=== PATIENT | male | born 1940 | race Caucasian/White ===

== ENCOUNTER → 2017-01-04 | Outpatient (CLI) | payer MEDICARE, OTHER ==
[2017-01-04 15:51] LABS: Blood Urea Nitrogen 13 mg/dL (9-20); Non-African American GFR(MDRD) >60 (>60 ml/min/1.73 sqM)
--- NOTE | 2017-01-05 07:57 | CT ---
EXAMINATION TYPE: CT abdomen pelvis w con DATE OF EXAM: 01/04/2017 COMPARISON: NONE HISTORY: Hematuria x1 1/[address] DLP: 701.5 mGycm, Automated Exposure Control for Dose Reduction was Utilized. CONTRAST: CT scan of the abdomen and pelvis is performed with oral and with IV Contrast, patient injected with 100 mL of Omnipaque 300. FINDINGS: LUNG BASES: Mild linear scarring or atelectasis centrally in left lung base is present . LIVER/GB: No significant abnormality is appreciated. PANCREAS: Mid to distal pancreatic body is prominent with heterogeneous hypodense areas identified. L argest measures 1.6 x 1.0 cm posterior aspect mid to distal body and axial image 18. Small hypodense area is seen distal to this on coronal image 39. Suspect cystic lesions. The main pancreatic duct is felt slightly dilated seen best on coronal image 33 and 34 near this level. Further workup is advised . SPLEEN: No significant abnormality is seen. ADRENALS: No significant abnormality is seen. KIDNEYS: There is symmetric cortical medullary uptake and excretion from both kidneys without evidenc e of hydronephrosis bilaterally. There is eccentric lobulated partially calcified bladder wall mass p osterior left aspect measuring 3.1 x 2.0 cm strongly suspicious for neoplasm given patient history. B ilateral distal ureter jets remain patent on delayed phased images through the bladder.. BOWEL: Oral contrast reaches level of mid transverse colon. There is no suspicious small or large bow el dilatation. There are scattered diverticula throughout the colon with prominent diverticulosis see n in the sigmoid colon. There is no CT evidence for acute diverticulitis. PROSTATE/SEMINAL VESICLES: Bladder is mildly enlarged bulging on bladder base, underlying BPH is susp ected. LYMPH NODES: No greater than 1cm abdominal or pelvic lymph nodes are appreciated. OSSEOUS STRUCTURES: Spine is straightened on sagittal images. There is multilevel disc desiccation an d disc space narrowing most prominent at L2-L3 and L5-S1 levels. There is moderate to advanced joint space loss and spurring in both hip joints. Nonspecific sclerotic focus left femoral head favors small bone infarct. OTHER: There is fairly moderate atherosclerotic change of aorta extending into branch vessels. IMPRESSION: 1. Fungated intraluminal partially calcified hyperdense bladder mass strongly suspicious for transiti onal cell carcinoma given patient's history of gross hematuria. Further investigation with direct vis ualization is advised. 2. Small hypodense areas in the somewhat prominent mid pancreatic body just left of midline near leve l of prominent or mildly dilated duct. Suspect cystic lesions. Differential includes cystic neoplasm versus sidebranch IPMN. Further investigation with multi phase contrast-enhanced MRI/MRCP study is ad vised to better evaluate and characterize.
== END | disposition home or self-care (01) ==
LOC: RADCTMAIN 15:13
PROVIDERS: ATTEND Urology
DX: N32.89 Other specified disorders of bladder (principal); R93.3 Abnormal findings on diagnostic imaging of other parts of digestive tract; R31.0 Gross hematuria
CPT/HCPCS: 82565; 84520; 74177; 36415; Q9967

== ENCOUNTER → 2017-02-12 | Outpatient (CLI) | payer MEDICARE, OTHER ==
[2017-02-12 10:36] LABS: HCT 44.1 % (39.0-53.0); HDW 2.34; HGB 13.7 gm/dL (13.0-17.5); MCH 29.3 pg (25.0-35.0); MCHC 31.1 g/dL (31.0-37.0); MCV 94.2 fL (80.0-100.0); Mean Platelet Volume 7.4; RBC 4.69 m/uL (4.30-5.90); RDW 14.5 % (11.5-15.5); WBC 8.9 k/uL (3.8-10.6)
[2017-02-12 15:12] LABS: Anion Gap 8 mmol/L; Blood Urea Nitrogen 11 mg/dL (9-20); Calcium 9.8 mg/dL (8.4-10.2); Carbon Dioxide 25 mmol/L (22-30); Chloride 104 mmol/L (98-107); Glucose 122 mg/dL (74-99); Non-African American GFR(MDRD) >60 (>60 ml/min/1.73 sqM); Potassium 4.2 mmol/L (3.5-5.1); Sodium 137 mmol/L (137-145)
== END | disposition home or self-care (01) ==
LOC: LABWHC1 09:52
PROVIDERS: ATTEND Urology
DX: Z01.812 Encounter for preprocedural laboratory examination (principal); C67.6 Malignant neoplasm of ureteric orifice; Z79.899 Other long term (current) drug therapy
CPT/HCPCS: 36415; 80048; 85027

== ENCOUNTER 2017-02-18 07:26 | Day surgery (SDC) | payer MEDICARE, OTHER ==
[2017-02-15 14:59] VITALS: BMI 21.5
[~2017-02-18 07:26] MED LIST: DEXAMETHASONE SOD PHOSPHATE 10 MG/ML 1 ML VIAL IV ONE; HYDROmorphone 0.5 MG/0.5 ML SYRINGE IVP PRN; LACTATED RINGERS 1,000 ML IV SCH; LEVOFLOXACIN 500MG-D5W PMX 500 MG in DEXTROSE/WATER 1 100ML.BAG IVPB ONE; MIDAZOLAM 2 MG/2 ML VIAL IV PRN; ONDANSETRON 4 MG/2 ML VIAL IVP ONE
[2017-02-18] MEDS ORDERED: LIDOCAINE 1% 20 ML VIAL (10MG/ML) FOR IV START INTRADERMA ONE (08:20)
[2017-02-18] MEDS ORDERED: LIDOCAINE 1% INJ 10MG/ML (20 ML MDV) ONE (09:38)
[2017-02-18] MEDS ORDERED: PROPOFOL 10 MG/ML 20 ML VIAL IV ONE (09:38)
[2017-02-18] MEDS ORDERED: fentaNYL (PF) 50 MCG/ML 2 ML AMP ONE (09:38)
[2017-02-18] MEDS ORDERED: PHENYLEPHRINE-0.9% NACL SYG 1 MG/10 ML SYRINGE ONE (09:38)
[2017-02-18] MEDS ORDERED: ePHEDrine SULFATE/0.9% NACL/PF 50 MG/5 ML SYRINGE IV ONE (09:38)
[2017-02-18] MEDS ORDERED: MIDAZOLAM 2 MG/2 ML VIAL ONE (09:38)
[2017-02-18] MEDS ORDERED: LACTATED RINGERS 1,000 ML IV ONE (10:32)
[2017-02-18 11:00] VITALS: TEMP 98.2
--- NOTE | 2017-02-18 11:07 | P.OP ---
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 His PSA level has been mildly elevated. He underwent a prostate ultrasound with biopsies in January 2009, showing no evidence of malignancy. His measured prostate volume was 30 cc. He reports mild frequency but was verified to be emptying his bladder. ITA reveals the prostate to be mildly enlarged but smooth. He recently experienced gross hematuria. A CT scan showed a bladder tumor, and he underwent TUR-BT. pathology revealed TaG1 uurothelial carcinoma. At the time of resection , tumor was seen within the intramural portion of the left distal ureter. He will undergo left ureteroscopy with laser ablation of any remaining tumor. Smoking cessation was stressed. The CT scan also showed a pancreatic lesion, for which he will follow up with Dr. Santiago. Operative Findings: No evidence of residual tumor. Left ureteral orifice could not be cannulated. Description of Procedure: The patient was taken to the operating room and placed in the dorsolithotomy position, with legs supported in Popeye stirrups. The external genitalia was prepped and draped sterilely. The 30 lens was used to introduce the 19-Ugandan Stortz cystoscopic sheath through the urethra and into the bladder under direct vision. The prostatic urethra showed evidence of mild lateral lobe enlargement. The bladder was examined in its entirety. The entire bladder was examined. Inflammation with healing was noted on the left posterior lateral bladder wall. The left ureteral orifice was not identified. Therefore, the 24- [place] ACMI resectoscope sheath was introduced into the bladder. In the anticipated area of the left ureter, resection was performed. This exposed what appeared to be the left ureteral orifice. The resectoscope was removed, and the ACMI semirigid ureteroscope was advanced into the bladder. Despite multiple attempts, the left ureteral orifice could not be cannulated. A Glidewire was passed through the ureteroscope, but this could not be successfully replaced. Ultimately, the procedure was terminated. The patient tolerated the procedure well and was taken to the recovery room in stable condition.
--- NOTE | 2017-02-18 11:27 | FL ---
Fluoroscopy HISTORY: Kidney stone 33 seconds fluoroscopy time supplied to the referring clinician. 1 intraoperative C-arm images docum ent the procedure. See dictated report from urology.
[2017-02-18 11:45] VITALS: PULSE 87
[2017-02-18 12:33] VITALS: BP 125/72; RESP 18
== END 2017-02-18 12:33 | disposition home or self-care (01) ==
LOC: OR 07:26
PROVIDERS: ATTEND Urology
DX: C67.6 Malignant neoplasm of ureteric orifice (principal); R39.12 Poor urinary stream; Z80.52 Family history of malignant neoplasm of bladder; I10 Essential (primary) hypertension; E03.9 Hypothyroidism, unspecified; E78.00 Pure hypercholesterolemia, unspecified; J44.9 Chronic obstructive pulmonary disease, unspecified; F17.200 Nicotine dependence, unspecified, uncomplicated; Z88.1 Allergy status to other antibiotic agents; Z79.899 Other long term (current) drug therapy; Z79.82 Long term (current) use of aspirin; Z82.49 Family history of ischemic heart disease and other diseases of the circulatory system; Z71.6 Tobacco abuse counseling
CPT/HCPCS: 52234; 88342; 88307; C1769; J2250; J1100; J2405; J1956; J2001; J3010; J2370; J2704

== ENCOUNTER → 2017-03-01 | Day surgery (SDC) | payer MEDICARE, OTHER ==
[2017-02-23 14:13] VITALS: BMI 21.5
[~2017-03-01] MED LIST changes: -DEXAMETHASONE SOD PHOSPHATE 10 MG/ML 1 ML VIAL IV ONE; -HYDROmorphone 0.5 MG/0.5 ML SYRINGE IVP PRN; -LACTATED RINGERS 1,000 ML IV SCH; -LEVOFLOXACIN 500MG-D5W PMX 500 MG in DEXTROSE/WATER 1 100ML.BAG IVPB ONE; -MIDAZOLAM 2 MG/2 ML VIAL IV PRN; -ONDANSETRON 4 MG/2 ML VIAL IVP ONE; +SODIUM CHLORIDE 0.9% 250 ML IV ONE
[2017-03-01 10:18] VITALS: BP 105/59; PULSE 78; RESP 18; TEMP 97.8
[2017-03-01 10:36] LABS: Basophils # (A) 0.1 k/uL (0-0.2); Basophils % (A) 1 %; CH 29.4; CHCM 32.3; Eosinophils # (A) 0.4 k/uL (0-0.7); Eosinophils % (A) 4 %; HCT 45.2 % (39.0-53.0); HDW 2.33; HGB 14.3 gm/dL (13.0-17.5); Luc # (Auto) 0.12; Luc % (Auto) 1; Lymphocytes # (A) 1.9 k/uL (1.0-4.8); Lymphocytes % (A) 19 %; MCH 28.9 pg (25.0-35.0); MCHC 31.7 g/dL (31.0-37.0); MCV 91.4 fL (80.0-100.0); Mean Platelet Volume 7.8; Monocytes # (A) 0.7 k/uL (0-1.0); Monocytes % (A) 8 %; Neutrophils # (A) 6.6 k/uL (1.3-7.7); Neutrophils % (A) 68 %; RBC 4.94 m/uL (4.30-5.90); WBC 9.8 k/uL (3.8-10.6); WBC (Perox) 9.65
[2017-03-01 10:45] LABS: Anion Gap 11 mmol/L; Blood Urea Nitrogen 11 mg/dL (9-20); Calcium 9.7 mg/dL (8.4-10.2); Carbon Dioxide 24 mmol/L (22-30); Chloride 103 mmol/L (98-107); Glucose 111 mg/dL (74-99); Non-African American GFR(MDRD) >60 (>60 ml/min/1.73 sqM); Potassium 4.3 mmol/L (3.5-5.1); Sodium 138 mmol/L (137-145)
--- NOTE | 2017-03-01 11:48 | US ---
EXAMINATION TYPE: US kidneys/renal and bladder DATE OF EXAM: 03/01/2017 COMPARISON: CT scan 01/04/17. CLINICAL HISTORY: left kidney r/o hydronephrosis. EXAM MEASUREMENTS: Right Kidney: 10.4 x 4.8 x 4.3 cm Left Kidney: 10.2 x 4.4 x 4.5 cm Right Kidney: No hydronephrosis or masses seen Left Kidney: No hydronephrosis or masses seen Bladder: Mildly distended. Wall = 0.6 cm, thickened. Inferior lesion vs wall thickening = 3.9 x 3.5 x 1.4 cm Bilateral Jets not seen IMPRESSION: Abnormal echogenicity within the bladder at the level of the left distal ureter likely related the pa tient's history of malignancy. No hydronephrosis.
== END ==
LOC: CATHCVL 09:37
PROVIDERS: ATTEND Radiology Diagnostic Radiology
DX: C67.9 Malignant neoplasm of bladder, unspecified (principal); D41.4 Neoplasm of uncertain behavior of bladder; Z53.8 Procedure and treatment not carried out for other reasons; R97.20 Elevated prostate specific antigen [PSA]; I10 Essential (primary) hypertension; E03.9 Hypothyroidism, unspecified; F17.200 Nicotine dependence, unspecified, uncomplicated; E78.00 Pure hypercholesterolemia, unspecified; Z79.82 Long term (current) use of aspirin; Z88.0 Allergy status to penicillin; Z79.899 Other long term (current) drug therapy; Z88.1 Allergy status to other antibiotic agents; Z85.828 Personal history of other malignant neoplasm of skin; Z80.52 Family history of malignant neoplasm of bladder; Z82.49 Family history of ischemic heart disease and other diseases of the circulatory system
CPT/HCPCS: 76770; 80048; 85025

== ENCOUNTER → 2017-04-01 | Outpatient (CLI) | payer MEDICARE, OTHER ==
[2017-04-01 12:39] LABS: Basophils % (A) 0 %; CH 28.8; CHCM 32.6; Eosinophils # (A) 0.1 k/uL (0-0.7); Eosinophils % (A) 1 %; HCT 47.1 % (39.0-53.0); HDW 2.34; HGB 15.2 gm/dL (13.0-17.5); Luc # (Auto) 0.13; Luc % (Auto) 1; Lymphocytes # (A) 1.7 k/uL (1.0-4.8); Lymphocytes % (A) 18 %; MCH 28.7 pg (25.0-35.0); MCHC 32.3 g/dL (31.0-37.0); MCV 88.8 fL (80.0-100.0); Mean Platelet Volume 8.5; Monocytes # (A) 0.6 k/uL (0-1.0); Monocytes % (A) 6 %; Neutrophils # (A) 6.9 k/uL (1.3-7.7); Neutrophils % (A) 73 %; RDW 13.8 % (11.5-15.5); WBC 9.6 k/uL (3.8-10.6); WBC (Perox) 10.02
[2017-04-01 12:51] LABS: Anion Gap 10 mmol/L; Blood Urea Nitrogen 13 mg/dL (9-20); Calcium 10.4 mg/dL (8.4-10.2); Carbon Dioxide 24 mmol/L (22-30); Chloride 101 mmol/L (98-107); Glucose 109 mg/dL (74-99); Non-African American GFR(MDRD) >60 (>60 ml/min/1.73 sqM); Sodium 135 mmol/L (137-145)
[2017-04-01 13:05] LABS: Potassium 5.2 mmol/L (3.5-5.1)
== END | disposition home or self-care (01) ==
LOC: LABPAT 11:15
PROVIDERS: ATTEND Urology
DX: Z01.812 Encounter for preprocedural laboratory examination (principal); C67.6 Malignant neoplasm of ureteric orifice; E03.9 Hypothyroidism, unspecified
CPT/HCPCS: 36415; 80048; 85025; 87086

== ENCOUNTER 2017-04-08 07:57 | Day surgery (SDC) | payer MEDICARE, OTHER ==
[2017-03-31 09:27] VITALS: BMI 21.5
[~2017-04-08 07:57] MED LIST changes: +LACTATED RINGERS 1,000 ML IV SCH; +MORPHINE SULFATE 5 MG/ML SYRINGE IV PRN; +Pre Op ABX Message 1 EACH MISC MISCELLANE ONE; -SODIUM CHLORIDE 0.9% 250 ML IV ONE
[2017-04-08] MEDS ORDERED: LIDOCAINE 1% 20 ML VIAL (10MG/ML) FOR IV START INTRADERMA ONE (08:25)
[2017-04-08] MEDS ORDERED: ONDANSETRON 4 MG/2 ML VIAL IVP ONE (08:26)
[2017-04-08] MEDS ORDERED: DEXAMETHASONE SOD PHOSPHATE 10 MG/ML 1 ML VIAL IV ONE (08:26)
[2017-04-08 08:41] LABS: Potassium 4.2 mmol/L (3.5-5.1)
[2017-04-08] MEDS ORDERED: fentaNYL (PF) 50 MCG/ML 2 ML AMP ONE (09:42)
[2017-04-08] MEDS ORDERED: PROPOFOL 10 MG/ML 20 ML VIAL IV ONE (09:42)
[2017-04-08] MEDS ORDERED: ePHEDrine SULFATE/0.9% NACL/PF 50 MG/5 ML SYRINGE IV ONE (09:42)
[2017-04-08] MEDS ORDERED: WATER FOR INJECTION, STERILE 10 ML VIAL IV ONE (09:42)
[2017-04-08] MEDS ORDERED: METHYLENE BLUE 10 MG/ML (10 ML VIAL) ONE (09:42)
[2017-04-08] MEDS ORDERED: SUCCINYLCHOLINE CHLORIDE 100 MG/5 ML SYR IV ONE (09:42)
[2017-04-08] MEDS ORDERED: GLYCOPYRROLATE 0.2 MG/ML 2 ML VIAL ONE (09:42)
[2017-04-08] MEDS ORDERED: LIDOCAINE 1% INJ 10MG/ML (20 ML MDV) ONE (09:42)
[2017-04-08] MEDS ORDERED: NEOSTIGMINE 1 MG/ML 10 ML VIAL ONE (09:42)
[2017-04-08] MEDS ORDERED: MIDAZOLAM 2 MG/2 ML VIAL ONE (09:42)
[2017-04-08] MEDS ORDERED: ROCURONIUM BROMIDE 10 MG/ML 10 ML VIAL IV ONE (09:42)
[2017-04-08] MEDS ORDERED: LACTATED RINGERS 1,000 ML IV ONE (10:15)
[2017-04-08] MEDS ORDERED: IOHEXOL 350 MG/ML 50ML BOTTLE MISCELLANE ONE (11:00)
--- NOTE | 2017-04-08 13:27 | FL ---
Fluoroscopy INDICATION: Pain FINDINGS: Fluoroscopy time: 5 minutes 5 seconds. Images obtained: 1. IMPRESSIONS: 1. Documentation of fluoroscopy.
[2017-04-08 16:30] VITALS: BP 128/64; PULSE 79; RESP 18; TEMP 98.1
--- NOTE | 2017-04-28 06:49 | P.OP ---
Date of Procedure: 04/08/17 Preoperative Diagnosis: Urothelial carcinoma of the bladder and left distal ureter Postoperative Diagnosis: Same Procedure(s) Performed: Cystoscopy, transurethral resection of bladder tumor (small), left ureteroscopy , left retrograde pyelogram Surgeon: Curtis Rivera Estimated Blood Loss (ml): 10 IV fluids (ml): 1,200 Pathology: other (Bladder tissue overlying left ureteral orifice.) Condition: stable Disposition: PACU Indications for Procedure: He is a 76 year-old male with a family history of bladder cancer. His PSA level has been mildly elevated. He underwent a prostate ultrasound with biopsies in January 2009, showing no evidence of malignancy. His measured prostate volume was 30 cc. He reports mild frequency but was verified to be emptying his bladder. ITA reveals the prostate to be mildly enlarged but smooth. He recently experienced gross hematuria. A CT scan showed a bladder tumor, and he underwent TUR-BT. Pathology revealed TaG1 uurothelial carcinoma. At the time of resection , tumor was seen within the intramural portion of the left distal ureter, but subsequent left ureteroscopy with laser ablation of any remaining tumor could not be performed due to the fact that the left ureteral orifice could not be identified. Options at this time include a left nephroureterectomy, left distal ureterectomy with reimplant, and placement of a left percutaneous nephrostomy tube with antegrade stent to allow subsequent ureteroscopy to be performed. I recommended the latter, but it could not be performed due to the lack of hydronephrosis. He will now undergo repeat cystoscopy with attempted left ureteroscopy and laser ablation of tumor. TUR-BT will be performed if there is evidence of recurrent bladder cancer. Operative Findings: Tumor within the left distal ureter. The proximal ureter was tortuous and could not be examined endoscopically. Description of Procedure: The patient was taken to the operating room and placed in the dorsolithotomy position, with legs supported in Popeye stirrups. The external genitalia was prepped and draped sterilely. The 30 lens was used to introduce the 19-Kinyarwanda Stortz cystoscopic sheath through the urethra and into the bladder under direct vision. The prostatic urethra showed evidence of mild lateral lobe enlargement. The bladder was examined in its entirety. Scarring was noted on the left posterolateral bladder wall. The left ureteral orifice was not initially be identified. Methylene blue was injected, and it was determined that the ureteral orifice was in an area where a mucosal irregularity was seen. The cystoscope was removed, and the 24-Kinyarwanda ACMI resectoscope sheath was introduced into the bladder. In the anticipated area of the left ureter, resection was performed. This exposed the left ureteral orifice. The resectoscope was removed, and the ACMI semirigid ureteroscope was advanced into the bladder. More tumor was visualized within the left distal ureter than was expected. Contrast was injected to assess the proximal ureter. The proximal ureter was tortuous, with irregularities suggestive of possible filling defects. A 0.035 inch angle-tip Glidewire was passed through the ureteroscope. With significant difficulty, it was possible to advance the Glidewire through the tortuous ureter and up to the left renal pelvis. The semirigid ureteroscope was removed, and the Olympus flexible ureteroscope was passed over the wire. However, due to angulation at the left ureteral orifice, it was not possible to cannulate the orifice and Glidewire access was lost. Despite multiple attempts, it was not possible to replace the wire through the tortuous ureter and up to the left renal pelvis. Flexible ureteroscopy was performed. The ureteroscope could be advanced under direct vision up to the area of tortuosity, but at that point the lumen could not be clearly identified. Multiple attempts were made once again to pass the Glidewire, but the Glidewire could not be advanced beyond the area of tortuosity and ultimately the procedure was terminated. The ureter was examined as the ureteroscope was withdrawn. No tumors were seen within the mid ureter. There was no evidence of ureteral trauma. As stated, the tumor burden within the left distal ureter was greater than what could be ablated with the Holmium laser. Upon removal of the ureteroscope, the procedure was terminated. The patient tolerated the procedure well and was taken to the recovery room in stable condition.
== END 2017-04-08 16:03 | disposition home or self-care (01) ==
LOC: OR 07:57
PROVIDERS: ATTEND Urology
DX: N32.89 Other specified disorders of bladder (principal); N21.0 Calculus in bladder; I10 Essential (primary) hypertension; E03.9 Hypothyroidism, unspecified; E78.00 Pure hypercholesterolemia, unspecified; R97.20 Elevated prostate specific antigen [PSA]; Z85.51 Personal history of malignant neoplasm of bladder; J44.9 Chronic obstructive pulmonary disease, unspecified; F17.200 Nicotine dependence, unspecified, uncomplicated; Z86.73 Personal history of transient ischemic attack (TIA), and cerebral infarction without residual deficits; Z79.82 Long term (current) use of aspirin; Z79.899 Other long term (current) drug therapy; Z88.1 Allergy status to other antibiotic agents; Z88.0 Allergy status to penicillin
CPT/HCPCS: 88305; 80051; 74420; 52234; C1769 ×2; C1758 ×2; J2250; J1100; J2710; J2405; J2001; Q9968; J3010; J0330; J2704; Q9967

== ENCOUNTER → 2017-04-22 | Outpatient (CLI) | payer MEDICARE, OTHER ==
[2017-04-22 11:42] LABS: Basophils # (A) 0.1 k/uL (0-0.2); Basophils % (A) 1 %; Eosinophils # (A) 0.4 k/uL (0-0.7); Eosinophils % (A) 3 %; HCT 45.3 % (39.0-53.0); Lymphocytes # (A) 2.3 k/uL (1.0-4.8); Lymphocytes % (A) 21 %; MCH 28.1 pg (25.0-35.0); MCV 90.8 fL (80.0-100.0); Mean Platelet Volume 6.9; Monocytes # (A) 0.6 k/uL (0-1.0); Monocytes % (A) 5 %; Neutrophils # (A) 7.5 k/uL (1.3-7.7); Neutrophils % (A) 68 %; Platelet Count 341 k/uL (150-450); RBC 4.99 m/uL (4.30-5.90); RDW 12.9 % (11.5-15.5); WBC 11.2 k/uL (3.8-10.6)
[2017-04-22 12:02] LABS: Anion Gap 12 mmol/L; Blood Urea Nitrogen 16 mg/dL (9-20); Carbon Dioxide 25 mmol/L (22-30); Chloride 101 mmol/L (98-107); Glucose 92 mg/dL (74-99); Potassium 4.9 mmol/L (3.5-5.1); Sodium 138 mmol/L (137-145)
== END | disposition home or self-care (01) ==
LOC: LABPAT 11:05
PROVIDERS: ATTEND Urology
DX: Z01.812 Encounter for preprocedural laboratory examination (principal); C66.2 Malignant neoplasm of left ureter; R31.0 Gross hematuria; E03.9 Hypothyroidism, unspecified
CPT/HCPCS: 36415; 80048; 85025; 87086

== ENCOUNTER → 2017-04-26 | Outpatient (CLI) | payer MEDICARE, OTHER | END | disposition home or self-care (01) | LOC: LABPAT 13:46 | PROVIDERS: ATTEND Urology | DX: Z01.818 Encounter for other preprocedural examination (principal) | CPT/HCPCS: 36415; 86850; 86900; 86901 ==

== ENCOUNTER 2017-04-30 05:58 | Inpatient (IN) | payer MEDICARE, OTHER ==
[2017-04-23 15:28] VITALS: BMI 21.5
[~2017-04-30 05:58] MED LIST changes: -LACTATED RINGERS 1,000 ML IV SCH; -MORPHINE SULFATE 5 MG/ML SYRINGE IV PRN; -Pre Op ABX Message 1 EACH MISC MISCELLANE ONE; +ceFAZolin 1,000 MG in DEXTROSE/WATER 1 50ML.BAG IV ONE
[2017-04-30] MEDS ORDERED: DEXAMETHASONE SOD PHOSPHATE 10 MG/ML 1 ML VIAL IV ONE (06:03)
[2017-04-30] MEDS ORDERED: MIDAZOLAM 2 MG/2 ML VIAL IV PRN (06:03)
[2017-04-30] MEDS ORDERED: SCOPOLAMINE 1.5MG/72HR PATCH TRANSDERM ONE (06:03)
[2017-04-30] MEDS ORDERED: MORPHINE SULFATE 4 MG/ML SYRINGE IV PRN (06:03)
[2017-04-30] MEDS ORDERED: ONDANSETRON 4 MG/2 ML VIAL IVP ONE (06:03)
[2017-04-30] MEDS: LACTATED RINGERS 1,000 ML IV SCH (06:33)
[2017-04-30] MEDS ORDERED: fentaNYL (PF) 50 MCG/ML 2 ML AMP ONE (07:33)
[2017-04-30] MEDS ORDERED: PROPOFOL 10 MG/ML 20 ML VIAL IV ONE (07:33)
[2017-04-30] MEDS ORDERED: PHENYLEPHRINE-0.9% NACL SYG 1 MG/10 ML SYRINGE ONE (07:33)
[2017-04-30] MEDS ORDERED: GLYCOPYRROLATE 0.2 MG/ML 2 ML VIAL ONE (07:33)
[2017-04-30] MEDS ORDERED: MIDAZOLAM 2 MG/2 ML VIAL ONE (07:33)
[2017-04-30] MEDS ORDERED: NEOSTIGMINE 1 MG/ML 10 ML VIAL ONE (07:33)
[2017-04-30] MEDS ORDERED: LIDOCAINE 1% INJ 10MG/ML (20 ML MDV) ONE (07:33)
[2017-04-30] MEDS ORDERED: ePHEDrine SULFATE/0.9% NACL/PF 50 MG/5 ML SYRINGE IV ONE (07:33)
[2017-04-30] MEDS ORDERED: SUCCINYLCHOLINE CHLORIDE 100 MG/5 ML SYR IV ONE (07:33)
[2017-04-30] MEDS ORDERED: WATER FOR INJECTION, STERILE 10 ML VIAL IV ONE (07:33)
[2017-04-30] MEDS ORDERED: BUPIVACAINE (PF) 0.5% 30 ML VIAL SQ ONE (08:33)
[2017-04-30] MEDS ORDERED: LACTATED RINGERS 1,000 ML IV ONE (08:36)
[2017-04-30] MEDS ORDERED: ACETAMINOPHEN TAB 325 MG TAB PO PRN (09:48)
[2017-04-30] MEDS ORDERED: ONDANSETRON 4 MG/2 ML VIAL IVP PRN (09:48)
[2017-04-30] MEDS: HYDROmorphone 2 MG/ML 1 ML SYRINGE IVP ONE ×3 (10:14→10:49)
--- NOTE | 2017-04-30 13:03 | P.OP ---
Date of Procedure: 04/30/17 Preoperative Diagnosis: Urothelial Carcinoma of the Left Ureter Postoperative Diagnosis: Same Procedure(s) Performed: Robotic-assisted Laparoscopic Left Nephroureterectomy Anesthesia: MARIANO Surgeon: Linda Santamaria Estimated Blood Loss (ml): 25 IV fluids (ml): 1,100 Pathology: none sent Condition: stable Disposition: PACU Indications for Procedure: He is a 76 year-old male with a family history of bladder cancer. His PSA level has been mildly elevated. He underwent a prostate ultrasound with biopsies in January 2009, showing no evidence of malignancy. His measured prostate volume was 30 cc. He reports mild frequency but was verified to be emptying his bladder. ITA reveals the prostate to be mildly enlarged but smooth. He recently experienced gross hematuria. A CT scan showed a bladder tumor, and he underwent TUR-BT. Pathology revealed TaG1 uurothelial carcinoma. At the time of resection , tumor was seen within the intramural portion of the left distal ureter. He recently underwent left ureteroscopy, revealing that the tumor burden within the left distal ureter exceeds what can be vaporized using the Holmium laser. The left proximal ureter was tortuous and could not be adequately evaluated. Options at this time include antegrade evaluation of the proximal ureter (with distal ureterectomy if the proximal ureter is disease-free) versus a left nephroureterectomy. He has elected to undergo the latter via a robotic-assisted laparoscopic approach. The procedure was reviewed in detail with the patient and his son. Potential risks include anesthesia, bleeding, infection, vascular injury, bowel injury, and urinary leak. Operative Findings: No evidence of extra ureteral disease. Description of Procedure: After informed consent was received and confirmation of preop antibiotics, the patient was brought back to the operating room. After induction of orotracheal general anesthesia, the patient was placed in the full flank position. The patient was placed on the table was broken in full flexion. All pressure points were padded, axillary roll placed as well as proper leg positioning for the flank position. We then taped the patient into position making sure that the patient was completely secured onto the table.After prepping and draping in the usual sterile fashion, Veress needle was used to gain abdominal insufflation. After abdominal insufflation to 20 mm Hg, a 12mm camera port followed by two 8 mm robotic arms, a 12 mm periumbilical port and a 5 mm upper quadrant histology assistant port was placed without difficulty. After this was satisfactorily placed, the robot was docked into place.Next, the colon was mobilized medially along the white line of Toldt and after medialization of the bowels, the tail of gerota's fascia was identified anterior to the psoas minor tendon. The ureter and gonadal vessels were then identified and used to trace up tothe level of the renal hilum. Superiorly, splenic attachments, including the lieno renal and phrenico-colic ligaments were taken down and the spleen and pancreas was retracted and reflected medially. The hilar fat was carefully dissected off the renal vessels and progression of this dissection identified a large singe renal vein and a single renal artery. The gonadal vessels were/were not spared. The adrenal vessels were left alone and the adrenals were left in the patient as a nice plane was developed between the kidney and adrenals.The vessels were controlled with a 60 cm endoGIA stapler and the hilar bed was inspected under low pressure pneumoinsufflation for bleeding.The ureter was dissected distally and the robot was then repositioned after airplaning the patient flat and with steep trendelenberg. The ureteral insertion into the bladder was well dissected out with a 1cm bladder cuff taken. The proximal portion of this was weck clipped and we then placed holding stitches as we amputated the bladder cuff. The bladder was closed in two layers of running 2-0 V loc, making sure to not take wide bites towards the contralateral ureteral orifice.The specimen was retreived with a 15 mm endocatch bag. The field was inspected for bleeding and was confirmed to bedry. A MARION was left in place. The robot was then de-docked and the specimen was then removed through the sub-umbilical port, which was extended slightly to remove the specimen in its entirety. Skin was closed with subcuticular running stitch, Mastisol, and Steri-Strips. The patient will be awoken from general anesthesia having tolerated the procedure well and will be brought out to the recovery room.
[2017-04-30] MEDS ORDERED: ALBUTEROL NEBULIZED 2.5 MG/3 ML INHALATION PRN (13:15)
[2017-04-30] MEDS: DEXTROSE 5%-0.45% NACL 1,000 ML IV SCH ×3 (13:16→23:28)
[2017-04-30] MEDS: HYDROmorphone 2 MG/ML 1 ML SYRINGE IVP PRN ×2 (13:18→23:24)
[2017-04-30] MEDS: ALBUTEROL NEBULIZED 2.5 MG/3 ML INHALATION PRN (15:20)
[2017-04-30] MEDS: HYDROcodone/APAP 5-325MG 1 EACH TAB PO PRN ×2 (15:41→20:36)
[2017-04-30] MEDS: HEPARIN SODIUM,PORCINE 5,000 UNIT/ML 1 ML VIAL SQ SCH (20:37)
[2017-04-30] MEDS: ATORVASTATIN 40 MG TAB PO SCH (20:38)
[2017-04-30] MEDS: LISINOPRIL 20 MG TAB PO SCH (20:38)
[2017-04-30] MEDS: METOPROLOL TARTRATE 25 MG TAB PO SCH (20:38)
[2017-05-01] MEDS: HYDROcodone/APAP 5-325MG 1 EACH TAB PO PRN ×3 (03:56→19:32)
[2017-05-01] MEDS: ALBUTEROL NEBULIZED 2.5 MG/3 ML INHALATION PRN ×3 (04:06→19:51)
[2017-05-01] MEDS: LEVOTHYROXINE 112 MCG TAB PO SCH (04:51)
[2017-05-01] MEDS ORDERED: LEVOTHYROXINE 125 MCG TAB PO SCH (06:30)
--- NOTE | 2017-05-01 09:57 | P.PN ---
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 He is relatively comfortable with [place]. He is afebrile and normotensive. He is tolerating liquids and wants to be advanced to regular diet. He denies any cough or shortness of breath and is doing incentive spirometry as directed. His abdominal incisions are uninflamed and intact. Urine draining from his Riggs catheter is clear. There is minimal drainage from the Anival-Mercado drain. Impression: Good recovery so far following left nephroureterectomy. Plan: Patient's diet and activity will be advanced. If he is comfortable and tolerating a regular diet he will be discharged in the morning with his catheter.
[2017-05-01] MEDS: HEPARIN SODIUM,PORCINE 5,000 UNIT/ML 1 ML VIAL SQ SCH ×2 (10:55→20:04)
[2017-05-01] MEDS: CITALOPRAM HYDROBROMIDE 20 MG TAB PO SCH (10:55)
[2017-05-01] MEDS: METOPROLOL TARTRATE 25 MG TAB PO SCH ×2 (10:55→20:04)
[2017-05-01] MEDS: DEXTROSE 5%-0.45% NACL 1,000 ML IV SCH ×3 (11:12→22:03)
[2017-05-01] MEDS ORDERED: NICOTINE 21MG/24HR PATCH TRANSDERM ONE (12:00)
[2017-05-01] MEDS: ALPRAZolam 0.25 MG TAB PO PRN (20:03)
[2017-05-01] MEDS: ATORVASTATIN 40 MG TAB PO SCH (20:04)
[2017-05-01] MEDS: LISINOPRIL 20 MG TAB PO SCH (20:04)
[2017-05-02] MEDS: LEVOTHYROXINE 112 MCG TAB PO SCH (05:02)
[2017-05-02] MEDS: DEXTROSE 5%-0.45% NACL 1,000 ML IV SCH (05:02)
[2017-05-02] MEDS: LACTATED RINGERS 1,000 ML IV SCH (05:03)
[2017-05-02] MEDS: HYDROcodone/APAP 5-325MG 1 EACH TAB PO PRN ×3 (06:55→18:12)
[2017-05-02] MEDS: CITALOPRAM HYDROBROMIDE 20 MG TAB PO SCH (07:30)
[2017-05-02] MEDS: ALPRAZolam 0.25 MG TAB PO PRN (07:30)
[2017-05-02] MEDS: METOPROLOL TARTRATE 25 MG TAB PO SCH ×2 (07:30→21:21)
[2017-05-02] MEDS: ALBUTEROL NEBULIZED 2.5 MG/3 ML INHALATION PRN (07:45)
--- NOTE | 2017-05-02 08:18 | XR ---
EXAMINATION TYPE: XR chest 2V DATE OF EXAM: 05/02/2017 HISTORY: SOB. REFERENCE: None. FINDINGS: The lungs are overinflated. There is platelike atelectasis at the right lung base. The left lung is clear. Pleural spaces are clear. The heart is not enlarged. IMPRESSION: 1. COPD. 2. PLATELIKE ATELECTASIS, RIGHT LUNG BASE.
[2017-05-02] MEDS: HEPARIN SODIUM,PORCINE 5,000 UNIT/ML 1 ML VIAL SQ SCH ×2 (08:44→21:21)
--- NOTE | 2017-05-02 09:32 | P.PN ---
Progress Note - Text Progress Note Date: 05/02/17 the patient is 2 days post laparoscopic left nephroureterectomy. He is afebrile and generally normotensive. He has been anxious about going home as he lives by himself. He had been a heavy smoker prior to admission to the hospital and was started on a nicotine patch yesterday due to this. O2 sat on 2 L of oxygen has been in the high 80s and low 90s. Patient has had some intermittent shortness of breath but the present time appears to be breathing without difficulty. Chest x-ray this morning was reviewed by me and does not appear to show any evidence of pneumonia or CHF. There is some air in the abdomen as expected following his surgery. The patient is tolerating liquids and some food and is not very hungry. Urine output through his Riggs catheter is clear. Drainage from the suprapubic drain has been minimal. Physical exam Chest: No rhonchi. Occasional expiratory wheezes. Cardiac: Regular rhythm-no murmur Abdomen: Generally soft. Bowel sounds are present. Incisions are intact and uninflamed. Impression: Postop shortness of breath-most likely related to patient's underlying COPD/asthma from smoking. The patient says that he had used an updraft at home on a when necessary basis but was not using this on a regular schedule. I suspect that the patient will need this to be restarted. Otherwise the patient is doing well following his surgery and his IV rate will be decreased. Recommendation: I'll have Dr. Santiago see the patient due to his recent shortness of breath. Plans for discharge will be deferred but hopefully the patient can be released tomorrow. Patient will be discharged with his Riggs catheter in place.
[2017-05-02] MEDS: D5-0.45% NACL WITH KCL 20MEQ/L 1,000 ML IV SCH (12:17)
[2017-05-02] MEDS: ALPRAZolam 0.25 MG TAB PO SCH ×2 (15:12→21:21)
[2017-05-02] MEDS: predniSONE 20 MG TAB PO SCH (15:12)
--- NOTE | 2017-05-02 15:50 | P.CONS ---
History of Present Illness - Reason for Consult Possible COPD, wheezing - History of Present Illness Patient is a very pleasant 74-year-old the gentleman with history of urothelial cancer underwent left nephro ureterectomy on this hospitalization started wheezing today morning because of which neurology consulted me. Patient does have 50 a smoking history continued to smoke until this hospitalization. denied any fever chills patient is comparing of the sputum with a low to greenish in color patient denied any dysuria nausea vomiting. Patient is wheezing on exam. Patient has multiple other medical problems to fairly stable enclosing including hypertension patient was started on his home medications which will be continued. Patient was also having anxiety episodes because of which we're using Xanax for that and we'll obtain a chest x-ray to rule out any pneumonic process and the patient will be started and oxygen for bronchitis along with the prednisone 40 mg along with Symbicort patient will be started on albuterol ipratropium as well. He does have a Riggs catheter in place does have a drain from his nephro ureterostomy on left side Review of Systems REVIEW OF SYSTEMS: CONSTITUTIONAL: No fever, no malaise, no fatigue. HEENT: No recent visual problems or hearing problems. Denied any sore throat. CARDIOVASCULAR: No chest pain, orthopnea, PND, no palpitations, no syncope. PULMONARY: No shortness of breath, no cough, no hemoptysis. GASTROINTESTINAL: No diarrhea, no nausea, no vomiting, no abdominal pain. Normoactive bowel sounds. NEUROLOGICAL: No headaches, no weakness, no numbness. HEMATOLOGICAL: Denies any bleeding or petechiae. GENITOURINARY: Denies any burning micturition, frequency, or urgency. MUSCULOSKELETAL/RHEUMATOLOGICAL: Denies any joint pain, swelling, or any muscle pain. ENDOCRINE: Denies any polyuria or polydipsia. The rest of the 14-point review of systems is negative. Past Medical History Past Medical History: Cancer, COPD, Hyperlipidemia, Hypertension, Osteoarthritis (OA), Thyroid Disorder Additional Past Medical History / Comment(s): hx. skin cancer, bladder cancer History of Any Multi-Drug Resistant Organisms: None Reported Past Surgical History: Bladder Surgery, Ear Surgery Additional Past Surgical History / Comment(s): skin cancer removed from back, lower eyelid surgery, left ear surgery for vertigo, thang cataracts, cystoscopy & TUR bladder tumor 2016 Past Anesthesia/Blood Transfusion Reactions: No Reported Reaction Past Psychological History: Anxiety Smoking Status: Current every day smoker Past Alcohol Use History: None Reported Additional Past Alcohol Use History / Comment(s): 1ppd for >50 yrs. Past Drug Use History: None Reported - Past Family History Mother Family Medical History: Cancer Brother(s) Family Medical History: Cancer Medications and Allergies Home Medications Medication Instructions Recorded Confirmed Type Albuterol Inhaler [Ventolin Hfa 1 - 2 puff INHALATION RT-Q6H PRN 09/24/15 History Inhaler] Aspirin 81 mg PO DAILY 09/24/15 04/30/17 History Citalopram Hydrobromide [CeleXA] 20 mg PO DAILY 09/24/15 04/30/17 History Levothyroxine Sodium [Synthroid] 112 mcg PO DAILY 09/24/15 04/30/17 History Lisinopril [Zestril] 20 mg PO HS 09/24/15 04/30/17 History Multivitamin [Men's Multi-Vitamin] 1 tab PO DAILY 09/24/15 04/30/17 History [place]-3 Fatty Acids/Fish Oil [Fish 1 cap PO DAILY 09/24/15 04/30/17 History Oil 1,000 mg Softgel] Simvastatin [Zocor] 80 mg PO HS 09/24/15 04/30/17 History Albuterol Nebulized [Ventolin 2.5 mg INHALATION RT-DAILY PRN 02/23/17 04/30/17 History Nebulized] Tamsulosin [Flomax] 0.4 mg PO DAILY@1700 03/31/17 04/30/17 History Metoprolol Tartrate [Lopressor] 25 mg PO BID 04/23/17 04/30/17 History Hydrocodone/Acetaminophen [[place] 1 - 2 tab PO Q4HR PRN 04/30/17 04/30/17 History 5-325] Allergies Allergy/AdvReac Type Severity Reaction Status Date / Time amoxicillin AdvReac Nausea & Verified 04/30/17 11:56 Vomiting clarithromycin [From Biaxin] AdvReac Nausea & Verified 04/30/17 11:56 Vomiting clavulanic acid AdvReac Nausea & Verified 04/30/17 11:56 [From Augmentin] Vomiting Physical Exam Vitals: Vital Signs Temp Pulse Pulse Pulse Resp BP Pulse Ox 05/02/17 14:57 98.1 F 67 16 138/74 95 05/02/17 07:56 80 05/02/17 07:45 76 05/02/17 07:33 24 05/02/17 07:00 97.8 F 86 14 159/70 91 L 05/02/17 01:07 98.3 F 70 17 131/81 95 05/01/17 20:02 76 05/01/17 19:52 72 94 L 05/01/17 19:28 98 F 94 20 166/73 94 L Intake and Output 05/02/17 05/02/17 05/02/17 06:59 14:59 22:59 Intake Total 1095 420 Output Total 1205 500 Balance -110 -80 Intake: IV 855 Dextrose 5%-0.45% NaCl 1, 855 000 ml @ 125 mls/hr IV . Q8H [facility] Rx#:[id number] Oral 240 420 Output: Drainage 5 Lower Medial Abdomen 5 Urine 1200 500 Other: Voiding Method Indwelling Catheter Indwelling Catheter Indwelling Catheter PHYSICAL EXAMINATION: GENERAL: The patient is alert and oriented x3, not in any acute distress. Well developed, well nourished. HEENT: Pupils are round and equally reacting to light. EOMI. No scleral icterus. No conjunctival pallor. Normocephalic, atraumatic. No pharyngeal erythema. No thyromegaly. CARDIOVASCULAR: S1 and S2 present. No murmurs, rubs, or gallops. PULMONARY: Significantly limited intubated entry into bilateral lung bone no wheezing was appreciated no crackles were appreciated. ABDOMEN: Soft, nontender, nondistended, normoactive bowel sounds. No palpable organomegaly. Brain on the left side MUSCULOSKELETAL: No joint swelling or deformity. EXTREMITIES: No cyanosis, clubbing, or pedal edema. NEUROLOGICAL: Gross neurological examination did not reveal any focal deficits. SKIN: No rashes. Assessment and Plan Plan: -COPD exacerbation: Patient will be started on oral steroids along with inhalational steroids and inhalational treatments. -Status post left nephroureterectostomy: Patient will be continued on IV fluids and we will obtain basic metabolic profile patient because patient has been on D5 half-normal saline. -GI prophylaxis with famotidine as patient is on systemic steroids. -Depression -hypertension -Hypothyroidism -Hyperlipidemia For above-mentioned chronic medical problems patient will be continued on appropriate home medications which were already started by the primary service thank you for letting Alex in this patient's care Dr. Trenton Santiago who is his primary care physician will follow the patient from tomorrow
[2017-05-02] MEDS: IPRATROPIUM-ALBUTEROL 3 ML NEB INHALATION SCH ×2 (15:59→18:21)
--- NOTE | 2017-05-02 16:16 | XR ---
EXAMINATION TYPE: XR chest 1V DATE OF EXAM: 05/02/2017 COMPARISON: 05/02/2017 HISTORY: Cough with history of COPD. TECHNIQUE: Single frontal view of the chest is obtained. FINDINGS: There is no focal air space opacity, pleural effusion, or pneumothorax seen. There is pulm onary hyperinflation and left basilar subsegmental dependent atelectasis. The cardiac silhouette size is within normal limits. The osseous structures are intact. Ossified body is seen within the right axillary recess. IMPRESSION: 1. No focal consolidation to suggest pneumonia. 2. Left basilar subsegmental atelectasis. 3. Radiographic sequela of COPD.
[2017-05-02] MEDS: SYMBICORT 160-4.5 MCG INHALER INHALATION SCH (18:22)
[2017-05-02] MEDS: LISINOPRIL 20 MG TAB PO SCH (21:21)
[2017-05-02] MEDS: FAMOTIDINE 20 MG TAB PO SCH (21:21)
[2017-05-02] MEDS: ATORVASTATIN 40 MG TAB PO SCH (21:21)
[2017-05-02] MEDS: DOXYCYCLINE 50 MG CAP PO SCH (21:22)
[2017-05-03] MEDS: IPRATROPIUM-ALBUTEROL 3 ML NEB INHALATION PRN ×2 (00:17→03:39)
[2017-05-03] MEDS: LEVOTHYROXINE 112 MCG TAB PO SCH (05:47)
[2017-05-03] MEDS: D5-0.45% NACL WITH KCL 20MEQ/L 1,000 ML IV SCH (06:22)
[2017-05-03 07:08] LABS: HCT 34.1 % (39.0-53.0); HGB 11.3 gm/dL (13.0-17.5); MCH 28.8 pg (25.0-35.0); MCHC 33.1 g/dL (31.0-37.0); Mean Platelet Volume 7.6; Platelet Count 243 k/uL (150-450); RBC 3.93 m/uL (4.30-5.90); RDW 13.8 % (11.5-15.5); WBC 9.4 k/uL (3.8-10.6)
[2017-05-03 07:37] LABS: Anion Gap 4 mmol/L; Blood Urea Nitrogen 12 mg/dL (9-20); Calcium 9.1 mg/dL (8.4-10.2); Carbon Dioxide 30 mmol/L (22-30); Chloride 102 mmol/L (98-107); Glucose 112 mg/dL (74-99); Potassium 4.2 mmol/L (3.5-5.1); Sodium 136 mmol/L (137-145)
[2017-05-03 07:51] VITALS: BP 144/74; TEMP 98.6
--- NOTE | 2017-05-03 07:53 | P.DS ---
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 Treatment options were reviewed with Dr. Juarez and the patient was admitted for the purpose of laparoscopic left nephroureterectomy. The patient underwent the procedure on the date of admission performed by Dr Santamaria. He was relatively comfortable postop but had some difficulty with shortness of breath. Chest x-ray showed no evidence of pneumonia but some possible atelectasis at the base of the lungs. Medical consultation was obtained and the patient was started on an updraft and an inhaler in his breathing improved. He was discharged on the third day postop at which time he was afebrile, tolerating regular diet and fully ambulatory. He had only minimal drainage from his suprapubic drain in this was removed prior to discharge. His skin incisions were intact and uninflamed. The patient was discharged with his catheter in place with the intent that it would remain for an additional week. His path report was pending at the time of discharge. Procedures: Left nephroureterectomy 04/30/2017 Patient Condition at Discharge: Good Plan - Discharge Summary Discharge Rx Participant: No New Discharge Prescriptions: New Acetaminophen-Codeine 300-30mg [Tylenol w/codeine #3] 1 tab PO Q6H PRN #10 tablet PRN Reason: Pain No Action Albuterol Inhaler [Ventolin Hfa Inhaler] 1 - 2 puff INHALATION RT-Q6H PRN PRN Reason: copd Lisinopril [Zestril] 20 mg PO HS Levothyroxine Sodium [Synthroid] 112 mcg PO DAILY Citalopram Hydrobromide [CeleXA] 20 mg PO DAILY Aspirin 81 mg PO DAILY Simvastatin [Zocor] 80 mg PO HS [place]-3 Fatty Acids/Fish Oil [Fish Oil 1,000 mg Softgel] 1 cap PO DAILY Multivitamin [Men's Multi-Vitamin] 1 tab PO DAILY Albuterol Nebulized [Ventolin Nebulized] 2.5 mg INHALATION RT-DAILY PRN PRN Reason: copd Tamsulosin [Flomax] 0.4 mg PO DAILY@1700 Metoprolol Tartrate [Lopressor] 25 mg PO BID Hydrocodone/Acetaminophen [[place] 5-325] 1 - 2 tab PO Q4HR PRN PRN Reason: Pain Discharge Medication List Albuterol Inhaler [Ventolin Hfa Inhaler] 1 - 2 puff INHALATION RT-Q6H PRN [History] Aspirin 81 mg PO DAILY 09/24/15 [History] Citalopram Hydrobromide [CeleXA] 20 mg PO DAILY 09/24/15 [History] Levothyroxine Sodium [Synthroid] 112 mcg PO DAILY 09/24/15 [History] Lisinopril [Zestril] 20 mg PO HS 09/24/15 [History] Multivitamin [Men's Multi-Vitamin] 1 tab PO DAILY 09/24/15 [History] [place]-3 Fatty Acids/Fish Oil [Fish Oil 1,000 mg Softgel] 1 cap PO DAILY [History] Simvastatin [Zocor] 80 mg PO HS 09/24/15 [History] Albuterol Nebulized [Ventolin Nebulized] 2.5 mg INHALATION RT-DAILY PRN [History] Tamsulosin [Flomax] 0.4 mg PO DAILY@1700 03/31/17 [History] Metoprolol Tartrate [Lopressor] 25 mg PO BID 04/23/17 [History] Hydrocodone/Acetaminophen [[place] 5-325] 1 - 2 tab PO Q4HR PRN 04/30/17 [History] Acetaminophen-Codeine 300-30mg [Tylenol w/codeine #3] 1 tab PO Q6H PRN #10 tablet 05/03/17 [Rx] Follow up Appointment(s)/Referral(s): Curtis Rivera MD [STAFF PHYSICIAN] - 1 Week Activity/Diet/Wound Care/Special Instructions: Riggs catheter. Provide patient with leg and large drainage bags. Discharge Disposition: HOME SELF-CARE Pending Studies Pending Results: Pathology report
[2017-05-03] MEDS: IPRATROPIUM-ALBUTEROL 3 ML NEB INHALATION SCH ×2 (08:00→13:10)
[2017-05-03] MEDS: SYMBICORT 160-4.5 MCG INHALER INHALATION SCH (08:00)
[2017-05-03 08:03] VITALS: PULSE 81; RESP 18
[2017-05-03] MEDS: CITALOPRAM HYDROBROMIDE 20 MG TAB PO SCH (08:38)
[2017-05-03] MEDS: FAMOTIDINE 20 MG TAB PO SCH (08:39)
[2017-05-03] MEDS: METOPROLOL TARTRATE 25 MG TAB PO SCH (08:39)
[2017-05-03] MEDS: HEPARIN SODIUM,PORCINE 5,000 UNIT/ML 1 ML VIAL SQ SCH (08:39)
[2017-05-03] MEDS: DOXYCYCLINE 50 MG CAP PO SCH (08:39)
[2017-05-03] MEDS: predniSONE 20 MG TAB PO SCH (08:40)
[2017-05-03] MEDS: ALPRAZolam 0.25 MG TAB PO SCH (08:47)
== END 2017-05-03 14:10 | disposition home or self-care (01) | DRG 658 ==
LOC: 2ORWHC 05:58 → 3SUR 09:51
PROVIDERS: ADMIT Urology; ATTEND Urology
PROC: 0TT74ZZ Resection of Left Ureter, Percutaneous Endoscopic Approach (ICD-10-PCS; 2017-04-30)
PROC: 0TT14ZZ Resection of Left Kidney, Percutaneous Endoscopic Approach (ICD-10-PCS; principal; 2017-04-30 07:30)
PROC: 8E0W4CZ Robotic Assisted Procedure of Trunk Region, Percutaneous Endoscopic Approach (ICD-10-PCS; principal; 2017-04-30 07:30)
DX: C66.2 Malignant neoplasm of left ureter (principal); J44.9 Chronic obstructive pulmonary disease, unspecified; E78.5 Hyperlipidemia, unspecified; F17.200 Nicotine dependence, unspecified, uncomplicated; F41.9 Anxiety disorder, unspecified; I10 Essential (primary) hypertension; M19.90 Unspecified osteoarthritis, unspecified site; E03.9 Hypothyroidism, unspecified; E78.00 Pure hypercholesterolemia, unspecified; R97.20 Elevated prostate specific antigen [PSA]; R35.0 Frequency of micturition; Z79.82 Long term (current) use of aspirin; Z79.899 Other long term (current) drug therapy; Z88.1 Allergy status to other antibiotic agents; Z88.0 Allergy status to penicillin; Z85.828 Personal history of other malignant neoplasm of skin; Z85.51 Personal history of malignant neoplasm of bladder; Z80.52 Family history of malignant neoplasm of bladder; Z82.49 Family history of ischemic heart disease and other diseases of the circulatory system
CPT/HCPCS: 36415; 71045; 71046; 80048; 85027; 86850; 86900; 86901; 88305; 88307; 94640; 94760

== ENCOUNTER → 2020-11-25 | Outpatient (CLI) | payer MEDICARE, OTHER | END | disposition home or self-care (01) | LOC: LABPAT 16:17 | PROVIDERS: ATTEND Orthopaedic Surgery | DX: Z01.812 Encounter for preprocedural laboratory examination (principal); Z22.322 Carrier or suspected carrier of Methicillin resistant Staphylococcus aureus; M16.11 Unilateral primary osteoarthritis, right hip | CPT/HCPCS: 87070 ==

== ENCOUNTER 2020-12-02 09:16 | Day surgery (SDC) | payer MEDICARE, OTHER ==
[2020-11-29 13:47] VITALS: BMI 25.8
--- NOTE | 2020-12-01 11:49 | HP ---
HISTORY AND PHYSICAL DATE OF SURGERY: 12/02/2020 Trenton Gold is a 79-year-old gentleman seen with symptomatic right hip osteoarthritis. We discussed options for treatment. He elected to proceed with direct anterior right total hip arthroplasty. Consent was obtained. Medical clearance was provided by Dr. Trenton Santiago. PAST MEDICAL HISTORY: Hypertension. PAST SURGICAL HISTORY: Ear surgery, bladder surgery. DAILY MEDICATIONS: Lisinopril, albuterol, levothyroxine, metoprolol, simvastatin. ALLERGIES: NONE. SOCIAL HISTORY: He denies current tobacco use. PHYSICAL EVALUATION OF THE RIGHT HIP: Very limited range of motion with severe pain. Positive hip impingement sign. Straight-leg raise negative. Distal neurovascular exam is intact. RADIOGRAPHS: Radiographs of the right hip reveal severe osteoarthritic changes. IMPRESSION: 1. Right hip osteoarthritis. 2. Hypertension. 3. Hyperlipidemia. 4. Hypothyroidism. PLAN: Direct anterior right total hip arthroplasty. MMODL / IJN: [id number] /
[~2020-12-02 09:16] MED LIST changes: +ACETAMINOPHEN TAB 500 MG TAB PO PRN; +DEXAMETHASONE SOD PHOSPHATE 4 MG/ML 1 ML VIAL IV ONE; +HYDROmorphone 0.5 MG/0.5 ML SYRINGE IVP PRN; +LACTATED RINGERS 1,000 ML IV SCH; +MELOXICAM 7.5 MG TAB PO PRN; +ONDANSETRON 4 MG/2 ML VIAL IVP ONE; +ROPIVACAINE/EPI/CLONIDINE/KET 50 ML SYRINGE MISCELLANE PRN; +TRANEXAMIC ACID 1,000 MG in SODIUM CHLORIDE 0.9% 100 ML IVPB PRN; -ceFAZolin 1,000 MG in DEXTROSE/WATER 1 50ML.BAG IV ONE
[2020-12-02] MEDS ORDERED: PROPOFOL 10 MG/ML 20 ML VIAL IV ONE (09:55)
[2020-12-02] MEDS ORDERED: KETAMINE 10 MG/ML 20 ML VIAL ONE (09:55)
[2020-12-02] MEDS ORDERED: diphenhydrAMINE 50 MG/ML 1 ML VIAL ONE (09:55)
[2020-12-02] MEDS ORDERED: PHENYLEPHRINE-0.9% NACL SYG 1,000 MCG/10 ML SYRINGE ONE (09:55)
[2020-12-02] MEDS ORDERED: TRANEXAMIC ACID 1,000 MG/10 ML VIAL ONE (09:55)
[2020-12-02] MEDS ORDERED: MIDAZOLAM 2 MG/2 ML VIAL ONE (09:55)
[2020-12-02] MEDS ORDERED: SODIUM CHLORIDE 0.9% 100 ML BAG ONE (09:55)
[2020-12-02] MEDS ORDERED: ceFAZolin 1,000 MG in SODIUM CHLORIDE 0.9% 1,000 ML IRRIGATION ONE (10:35)
[2020-12-02] MEDS ORDERED: NALOXONE 0.4 MG/ML 1 ML VIAL IV PRN (11:38)
[2020-12-02] MEDS ORDERED: HYDROmorphone 0.2 MG/1 ML SYRINGE IVP PRN (11:38)
[2020-12-02] MEDS ORDERED: HYDROcodone/APAP 5-325MG 1 EACH TAB PO PRN (11:38)
[2020-12-02] MEDS ORDERED: HYDROmorphone 0.5 MG/0.5 ML SYRINGE IVP PRN ×2 (11:38)
[2020-12-02] MEDS ORDERED: ONDANSETRON 4 MG/2 ML VIAL IVP PRN (11:38)
--- NOTE | 2020-12-02 11:38 | XR ---
EXAMINATION TYPE: XR Hip Limited RT DATE OF EXAM: 12/02/2020 CLINICAL HISTORY: Postoperative evaluation TECHNIQUE: Single portable view of the right hip was submitted. FINDINGS: Noted are changes of total hip arthroplasty with femoral and acetabular components appearin g well seated. Alignment is anatomic. Postsurgical soft tissue changes are evident. IMPRESSION: Satisfactory postoperative alignment
--- NOTE | 2020-12-02 11:38 | P.OP ---
Date of Procedure: 12/02/20 Preoperative Diagnosis: Right hip osteoarthritis Postoperative Diagnosis: Right hip osteoarthritis Procedure(s) Performed: Direct anterior right total hip arthroplasty Implants: 1. Depuy [place] KA size 13 standard collar press-fit femoral stem 2. Depuy pinnacle multi hole 54 mm press-fit acetabular shell 3. Depuy pinnacle neutral polyethylene acetabular liner 36 mm ID 54 mm OD 4. Biolox delta ceramic femoral head +5 36 mm Anesthesia: local, spinal Surgeon: Adarsh Camp Test Inspection Engineer #1: Iain Dinh Estimated Blood Loss (ml): 80 Pathology: other (Femoral head) Condition: stable Disposition: PACU Indications for Procedure: 79-year-old patient seen with symptomatic right hip osteoarthritis. After treatment options were discussed, he elected to proceed with total hip arthroplasty. Operative Findings: See description of procedure Description of Procedure: The patient was taken to the operative suite. Patient underwent a spinal anesthetic by the department of anesthesia. Patient was then transferred to the [place] table. Patient was given preoperative IV antibiotics and TXA. Both lower extremities were placed in standard leg spars. The hip was then prepped and draped in the normal sterile orthopedic fashion. A standard anterior incision was made beginning 3 cm lateral and 1 cm distal to the ASIS extending 10 cm. Dissection was then carried down through the subcutaneous soft tissues down to the fascia overlying the tensor fascia ez. An incision was now made through the fascia. Careful dissection was taken down exposing the tensor fascia ez muscle. A Cobra retractor was now placed along the medial femoral neck and a second one along the lateral femoral neck. The venous circumflex vessels were now identified, cauterized and clipped. We identified the anterior hip capsule. An incision was made through the hip capsule along the lateral border. I performed a partial anterior capsulectomy. Retractors were now placed around th e femoral neck itself. A femoral neck cut was now made with a sagittal saw. It was completed with an osteotome at the lateral neck area. The femoral head was now removed without difficulty. The extremity was now rotated to 60 of external rotation. It was locked in position. Residual labrum was now debrided out. Serial reaming was performed of the acetabulum while Barak HOPE assisted holding an anterior retractor for exposure. Once we reached the appropriate size and a trial was position and fit nicely. The appropriate size was now chosen opened and made available. It was introduced into the acetabulum without difficulty. The C-arm/fluoroscopy was now brought into the operative field. We made sure we had a true AP pelvic view. We now under direct C- arm/fluoroscopy introduced into the acetabular component with appropriate version and inclination. I held the cup in appropriate position well Barak HOPE used a mallet to seat the acetabular component. I noted the component now to be well seated and stable. Acetabular cup introduce her was removed. The C-arm was pulled back. An appropriate liner was introduced and clicked into position. It was felt to be stable. At this point retractors were removed. The extremity was now placed into 140 external rotation with no traction. The leg was now dropped to the ground and adducted. Appropriate retractors were now positioned along the proximal femur. We also placed our femoral look into position. Additional capsular releasing was performed to gain access to the proximal femur. We now used a box osteotome. A canal finder was now utilized. Serial broaching was now performed with the assistance of Barak HOPE tapping the broaches down with a mallet while held the broach in appropriate rotation and position. This was done until we reached the appropriate size with good overall rotational stability. Appropriate calcar planing was performed. A trial head/neck was placed into position. The hip was now reduced. The C- arm/fluoroscopy was brought back into the operative field. I obtained AP pelvis demonstrate reasonable leg length alignment. I evaluated the patellar component which appeared adequately sized in position. The C-arm/fluoroscopy was pulled back. Retractors were repositioned and the hip was dislocated. The leg was again taken down to the ground and adducted. Appropriate retractors were repositioned as well as the femoral hook. All trial components were removed. The femoral implant was opened along with the femoral head. The femoral implant was introduced on the appropriate handle into our pre-broached area. I held the component position well Barak HOPE used a mallet to seat the femoral component. The femoral component was now noted to be well seated and stable.. The femoral head was introduced with good positioning and fixation noted. Retractors were now removed. The hip was now reduced. There appeared be good positioning of the hip confirmed on intraoperative fluoroscopy. Spot films were obtained to document this. A second gram of TXA was given. The deep and superficial soft tissues were infiltrated with local analgesic. Bipolar cautery had been utilized intermittently through the procedure for hemostasis. The wound was irrigated copiously with pulse lavage mechanical irrigation. The fascia was repaired with Vicryl suture. The subcutaneous soft tissues were repaired in layers with Vicryl suture. The skin was approximated with pernio/Dermabond. Sterile dressings were applied. Patient was then awakened, transferred to a bed and taken to recovery in stable condition. Barak HOPE assisted with the complex procedure.
--- NOTE | 2020-12-02 12:23 | FL ---
Fluoroscopy HISTORY: Total hip replacement 11 seconds fluoroscopy time supplied to the referring clinician. 2 intraoperative C-arm images docum ent the procedure. See dictated report from orthopedic surgery.
[2020-12-02] MEDS: LACTATED RINGERS 1,000 ML IV SCH (14:38)
[2020-12-02] MEDS: HYDROcodone/APAP 5-325MG 1 EACH TAB PO PRN (14:41)
[2020-12-02] MEDS ORDERED: IPRATROPIUM-ALBUTEROL 3 ML NEB INHALATION PRN (14:53)
[2020-12-02] MEDS: IPRATROPIUM-ALBUTEROL 3 ML NEB INHALATION SCH ×2 (16:17→19:38)
[2020-12-02] MEDS ORDERED: TAMSULOSIN 0.4 MG CAP.ER.24H PO SCH (17:00)
[2020-12-02] MEDS: SYMBICORT 80-4.5 MCG INHALER INHALATION SCH (19:38)
[2020-12-02] MEDS ORDERED: SENNOSIDES-DOCUSATE SODIUM 1 EACH TAB PO SCH (21:00)
[2020-12-02] MEDS: METOPROLOL TARTRATE 25 MG TAB PO SCH (21:39)
[2020-12-03] MEDS: HYDROcodone/APAP 5-325MG 1 EACH TAB PO PRN ×3 (00:35→11:21)
[2020-12-03] MEDS: LACTATED RINGERS 1,000 ML IV SCH (03:40)
[2020-12-03] MEDS ORDERED: LEVOTHYROXINE 112 MCG TAB PO SCH (06:30)
[2020-12-03] MEDS: METOPROLOL TARTRATE 25 MG TAB PO SCH (07:26)
[2020-12-03 08:30] VITALS: BP 150/71; RESP 18; TEMP 99.4
[2020-12-03] MEDS ORDERED: ENOXAPARIN 40 MG/0.4 ML SYRINGE SQ SCH (09:00)
[2020-12-03] MEDS ORDERED: PANTOPRAZOLE 40 MG/10 ML VIAL IVP SCH (09:00)
[2020-12-03] MEDS: IPRATROPIUM-ALBUTEROL 3 ML NEB INHALATION SCH ×2 (09:01→12:29)
[2020-12-03] MEDS: SYMBICORT 80-4.5 MCG INHALER INHALATION SCH ×2 (09:01→12:28)
[2020-12-03 09:04] VITALS: PULSE 72
--- NOTE | 2020-12-03 10:11 | P.DS ---
Providers Date of admission: 12/02/2020 Expected date of discharge: 12/03/20 Attending physician: Adarsh Camp Consults: 12/02/20 11:38 Consult Physician Routine Consulting Provider: Trenton Santiago Reason/Comments: Medical management Do you want consulting provider notified?: Yes Primary care physician: Trenton Santiago Hospital Course: Date of admission: 12/02/2020 Date of discharge: 12/03/2020 Admission diagnosis: Right hip osteoarthritis Discharge diagnosis: Same Attending physician: Dr. Camp Surgical procedures: Right total hip arthroplasty Brief history: Patient is a 79-year-old male with a history of progressive primary right hip osteoarthritis. At this point patient has failed conservative treatment measures and has opted to proceed with a elective right total knee arthroplasty. Hospital course: Details of patient's surgery can be found in operative report. Patient tolerated the procedure well and was subsequently transported to orthopedic floor. Patient's orthopeidc and medical care was provided daily. Patient had daily laboratory tests performed for evaluation of overall blood counts. Patient had daily physical therapy to include strengthening range of motion as well as education with walker ambulation. Patient was treated with Lovenox for their postoperative DVT prophylaxis during their inpatient stay. Patient was noted to have a relatively uneventful postoperative course. Patient reported satisfactory pain control with oral pain medications by postoperative day 1. Patient showed satisfactory progress with physical therapy. Patient moved steadily through the program and had no difficulty meeting the goals by postoperative day 1. Given patient's otherwise satisfactory course and having met physical therapy goals, plan is to discharge patient home on postoperative day 1. Discharge condition/disposition: Patient will be discharged home in stable condition. Discharge medications: Instructions are given on resumption of patient's normal daily medications per primary care recommendation, in addition patient will be prescribed [place] 7.5 mg/325 mg; patient will resume aspirin at home and take 81 mg twice a day 30 days Discharge instructions: 1. Wound care and infection precautions, keep incision dry and covered while showering, no lotions, creams, moisturizers. No soaking, tubs, pools, hottubs. Do not scrub over the incision. 2. Weight-bear as tolerated with walker / cane until follow-up. 3. Ice and elevate when necessary. Do not exceed 20 minutes per hour with ice pack. 4. Utilize compression sleeve until seen at first follow up appointment. 5. Visiting nursing care. 6. Home physical therapy. 7. Pain meds and anticoagulants per prescription. 8. Pain medication has potential to cause constipation. Increase oral fluid and fiber intake. Contact primary care provider if you have not had a bowel movement within 48 hours after discharge 9. No anti-inflammatory medication until discussed at first post operative visit, this including Motrin, Aleve, Mobic, Diclofenac. 10. Follow up in office at 2 weeks postop with Barak Dinh PA-C / Al Mendes PA-C 11. Follow up with your primary care doctor 7-10 days after discharge. 12. Contact [facility] with any questions, . Assessment: Right hip osteoarthritis Procedures: Right total hip arthroplasty Patient Condition at Discharge: Good Plan - Discharge Summary Discharge Rx Participant: No New Discharge Prescriptions: New HYDROcodone/APAP 7.5-325MG [[place] 7.5] 1 each PO Q6HR PRN #28 tab PRN Reason: Pain No Action Albuterol Inhaler (Mhu) [Ventolin Hfa Inhaler] 1 - 2 puff INHALATION RT-Q6H PRN PRN Reason: copd lisinopriL [Zestril] 20 mg PO HS Levothyroxine Sodium [Synthroid] 112 mcg PO DAILY Citalopram Hydrobromide [CeleXA] 20 mg PO DAILY Aspirin 81 mg PO DAILY Simvastatin [Zocor] 80 mg PO HS [place]-3 Fatty Acids/Fish Oil [Fish Oil 1,000 mg Softgel] 1 cap PO DAILY Multivitamin [Men's Multi-Vitamin] 1 tab PO DAILY Albuterol Nebulized [Ventolin Nebulized] 2.5 mg INHALATION RT-DAILY PRN PRN Reason: copd Tamsulosin [Flomax] 0.4 mg PO DAILY@1700 Metoprolol Tartrate [Lopressor] 25 mg PO BID Acetaminophen [Tylenol Arthritis] 1,300 mg PO DAILY Discharge Medication List Albuterol Inhaler (Mhu) [Ventolin Hfa Inhaler] 1 - 2 puff INHALATION RT-Q6H PRN 09/24/15 [History] Aspirin 81 mg PO DAILY 09/24/15 [History] Citalopram Hydrobromide [CeleXA] 20 mg PO DAILY 09/24/15 [History] Levothyroxine Sodium [Synthroid] 112 mcg PO DAILY 09/24/15 [History] Multivitamin [Men's Multi-Vitamin] 1 tab PO DAILY 09/24/15 [History] [place]-3 Fatty Acids/Fish Oil [Fish Oil 1,000 mg Softgel] 1 cap PO DAILY 09/24/15 [History] Simvastatin [Zocor] 80 mg PO HS 09/24/15 [History] lisinopriL [Zestril] 20 mg PO HS 09/24/15 [History] Albuterol Nebulized [Ventolin Nebulized] 2.5 mg INHALATION RT-DAILY PRN 02/23/17 [History] Tamsulosin [Flomax] 0.4 mg PO DAILY@1700 03/31/17 [History] Metoprolol Tartrate [Lopressor] 25 mg PO BID 04/23/17 [History] Acetaminophen [Tylenol Arthritis] 1,300 mg PO DAILY 11/29/20 [History] HYDROcodone/APAP 7.5-325MG [[place] 7.5] 1 each PO Q6HR PRN #28 tab 12/03/20 [Rx] Follow up Appointment(s)/Referral(s): [facility], [NON-STAFF] - As Needed [facility] [NON-STAFF] - As Needed (antoine) Iain Dinh PAC [PHYSICIAN READY TO WEAR DEPARTMENT MANAGER] - 2 Weeks Activity/Diet/Wound Care/Special Instructions: Orthopedic Discharge Instructions: 1. Wound care and infection precautions, keep incision dry and covered while showering, no lotions, creams, moisturizers. No soaking, pools, hot tubs. Do not scrub over incision. 2. Weight-bear as tolerated with walker / cane until follow-up. 3. Ice and elevate when necessary. Do not exceed 20 minutes per hour with ice pack. 4. Utilize compression sleeve until seen at first follow up appointment. 5. Pain meds and anticoagulants per prescription. 6. Pain medication has potential to cause constipation. Increase oral fluid and fiber intake. Contact primary care provider if you have not had a bowel movement within 48 hours after discharge. 7. No anti-inflammatory medication until discussed at first post operative visit, this including Motrin, Aleve, Mobic, Diclofenac. 8. Follow up in office at 2 weeks postop with Barak Dinh PA-C / Al Mendes PA-C 9. Follow up with your primary care doctor 7-10 days after discharge. 10. Contact [facility] with any questions, . Silver foam dressing may be removed in 4 days. When Silver foam dressing is still on, while showering, cover dressing and Saran wrap. Do not scrub or soak incision. Discharge Disposition: HOME SELF-CARE
[2020-12-03 11:02] LABS: Basophils # (A) 0.01 X 10*3/uL (0.00-0.10); Basophils % (A) 0.1 %; Eosinophils # (A) 0 X 10*3/uL (0.04-0.35); Eosinophils % (A) 0 %; HCT 35.5 % (39.6-50.0); HGB 11.3 g/dL (13.0-17.0); Lymphocytes # (A) 1.28 X 10*3/uL (0.90-5.00); Lymphocytes % (A) 8.7 %; MCH 30.4 pg (27.0-32.0); MCHC 31.8 g/dL (32.0-37.0); MCV 95.4 fL (80.0-97.0); Mean Platelet Volume 10.7 fL (9.5-12.2); Monocytes # (A) 1.36 X 10*3/uL (0.20-1.00); Monocytes % (A) 9.2 %; Neutrophils # (A) 12.05 X 10*3/uL (1.80-7.70); Neutrophils % (A) 81.5 %; Platelet Count 264 X 10*3/uL (140-440); RBC 3.72 X 10*6/uL (4.40-5.60); RDW 13.1 % (11.5-14.5); WBC 14.78 X 10*3/uL (4.50-10.00)
--- NOTE | 2020-12-03 12:08 | P.PN ---
Subjective Progress Note Date: 12/03/20 Principal diagnosis: Right hip osteoarthritis Patient was seen at bedside this morning. Patient is lying semirecumbent bed. Patient says physical therapy went well this morning as he said he walked out in the thakkar and up-and-down a couple steps. Patient says he has not had a bowel movement yet, however, patient says he has passed gas. Patient says he has been using incentive spirometer as well. Patient says he would like to go home. Patient denies chest pain, fever, shortness breath, nausea, vomiting, change in vision, loss of bowel/bladder control. Objective - Vital Signs Vital signs: Vital Signs Temp 99.4 F 12/03/20 08:00 Pulse 72 12/03/20 09:15 Resp 18 12/03/20 08:00 BP 150/71 12/03/20 08:00 Pulse Ox 94 L 12/03/20 09:24 Intake & Output 12/02/20 12/03/20 12/03/20 18:59 06:59 18:59 Intake Total 751 Output Total 80 600 Balance 671 -600 Weight 81.8 kg Intake: IV 751 Output: Urine 600 Estimated Blood Loss 80 - Exam Right hip: Incision is clean, dry, and intact. The silver foam tape is in good condition. There is minimal soft tissue swelling and ecchymosis surrounding the medial and lateral aspects of the incision. Calf is soft, no tenderness with palpation. Plantar flexion, dorsiflexion, EHL, FHL are intact. Sensory exam to light touch throughout the extremity is intact, dorsal pedis pulses 2+. - Labs CBC & Chem 7: 12/03/20 07:05 Assessment and Plan Assessment: Right hip osteoarthritis Plan: 1. Right hip osteoarthritis - right total hip arthroplasty from yesterday, a 12/02/2020. Patient stable this morning. plan discharge home today. 2. Appreciate medical management 3. Pain management - stable at this time. Patient going home with [place] 7.5/325 mg 4. GI ppx - Senna 5. DVT ppx - Lovenox in hospital. Patient is take aspirin 81 mg twice a day 30 days outpatient 6. Encourage incentive spirometer use 7. PT/OT - weightbearing as tolerated with walker for assistance 8. Discharge planning- plan discharge home today. Time with Patient: Less than 30
[2020-12-03] MEDS ORDERED: CITALOPRAM HYDROBROMIDE 20 MG TAB PO SCH (13:00)
--- NOTE | 2020-12-03 13:20 | P.CONS ---
History of Present Illness - Reason for Consult Consult date: 12/03/20 Medical management COPD, gastroesophageal reflux disease, hypertension, jason Requesting physician: Adarsh Camp - Chief Complaint Right hip osteoarthritis, status post anterior right total hip arthroplasty - History of Present Illness This is a 79-year-old gentleman status post stress anterior right total hip arthroplasty for right hip osteoarthritis, and a patient with past medical history of bladder cancer- Left nephroureterectomy., COPD, hypertension, hyperlipidemia, hypothyroidism and multiple other medical issues. Voiding well, recent BUN 17, creatinine 1.1, potassium 4.7 on 11/18/2020 Tolerated procedure well. Good diet intake, no nausea vomiting or diarrhea. Passing flatus. Up in chair earlier. He ambulated to and from bathroom, tolerating exertion well. Denies lightheadedness, dizziness or focal deficits. Pain controlled. T-max 99.4, WBC 14.78. Reports he has not been eager to use his incentive spirometer, feels increases his congestion. Reeducated on rational for the incentive spirometer. Denies chest pain, palpitations or shortness of breath. Current O2 sat 94% on room air. Maintained on scheduled nebulized bronchodilators as well as prn. Hemoglobin prior to surgery 13.6, creatinine 1.3. Vital signs stable, no tachycardia. PT pending. Anticipates being discharged home today. Review of Systems ROS Statement: Those systems with pertinent positive or pertinent negative responses have been documented in the HPI. ROS Other: All systems not noted in ROS Statement are negative. Past Medical History Past Medical History: Cancer, COPD, Hyperlipidemia, Hypertension, Osteoarthritis (OA), Thyroid Disorder Additional Past Medical History / Comment(s): hx. skin cancer, bladder cancer, ONLY HAS RIGHT KIDNEY History of Any Multi-Drug Resistant Organisms: None Reported Past Surgical History: Bladder Surgery, Ear Surgery Additional Past Surgical History / Comment(s): skin cancer removed from back, lower eyelid surgery, left ear surgery for vertigo, thang cataracts, cystoscopy & TUR bladder tumor 2016, LEFT KIDNEY REMOVED FOR CANCER, Past Anesthesia/Blood Transfusion Reactions: No Reported Reaction Past Psychological History: Anxiety Smoking Status: Former smoker Past Alcohol Use History: None Reported Additional Past Alcohol Use History / Comment(s): STARTED SMOKING AT AGE 15 QUIT AT AGE 77 SMOKED 1PPD Past Drug Use History: None Reported - Past Family History Mother Family Medical History: Cancer Brother(s) Family Medical History: Cancer Medications and Allergies Home Medications Medication Instructions Recorded Confirmed Type Albuterol Inhaler (Mhu) [Ventolin 1 - 2 puff INHALATION RT-Q6H PRN 09/24/15 11/29/20 History Hfa Inhaler (Mhu)] Aspirin 81 mg PO DAILY 09/24/15 11/29/20 History Citalopram Hydrobromide [CeleXA] 20 mg PO DAILY 09/24/15 11/29/20 History Levothyroxine Sodium [Synthroid] 112 mcg PO DAILY 09/24/15 11/29/20 History Multivitamin [Men's Multi-Vitamin] 1 tab PO DAILY 09/24/15 11/29/20 History [place]-3 Fatty Acids/Fish Oil [Fish 1 cap PO DAILY 09/24/15 11/29/20 History Oil 1,000 mg Softgel] Simvastatin [Zocor] 80 mg PO HS 09/24/15 11/29/20 History lisinopriL [Zestril] 20 mg PO HS 09/24/15 11/29/20 History Albuterol Nebulized [Ventolin 2.5 mg INHALATION RT-DAILY PRN 02/23/17 11/29/20 History Nebulized] Tamsulosin [Flomax] 0.4 mg PO DAILY@1700 03/31/17 11/29/20 History Metoprolol Tartrate [Lopressor] 25 mg PO BID 04/23/17 11/29/20 History Acetaminophen [Tylenol Arthritis] 1,300 mg PO DAILY 11/29/20 11/29/20 History Fluticasone/Salmeterol [Advair 1 inhalation PO BID #1 each 12/03/20 Rx 250-50 Diskus] HYDROcodone/APAP 7.5-325MG [[place] 1 each PO Q6HR PRN #28 tab 12/03/20 Rx 7.5] Sennosides-Docusate Sodium 2 each PO HS tab 12/03/20 Rx [Senokot-S] Allergies Allergy/AdvReac Type Severity Reaction Status Date / Time amoxicillin AdvReac Nausea & Verified 12/02/20 09:42 Vomiting clarithromycin [From Biaxin] AdvReac Nausea & Verified 12/02/20 09:42 Vomiting clavulanic acid AdvReac Nausea & Verified 12/02/20 09:42 [From Augmentin] Vomiting Physical Exam Vitals: Vital Signs Temp Pulse Pulse Resp BP BP Pulse Ox 12/02/20 14:33 16 12/02/20 12:59 64 16 146/70 99 12/02/20 12:43 63 16 136/70 99 12/02/20 12:28 64 16 144/69 99 12/02/20 12:13 65 16 145/75 99 12/02/20 11:58 96.9 F L 89 19 131/68 100 12/02/20 09:39 96.9 F L 80 18 191/87 95 Intake and Output 12/01/20 12/02/20 12/02/20 22:59 06:59 14:59 Intake Total 751 Output Total 80 Balance 671 Intake: IV 751 Output: Estimated Blood Loss 80 Other: Weight 81.8 kg PHYSICAL EXAM: VITAL SIGNS: [As above] GENERAL: Sitting up at side of bed, no acute distress HEENT: Conjunctivae normal. eyes normal. NECK: No JVD. No thyroid enlargement. No LNs CARDIOVASCULAR: S1, S2 regular. No murmur RESPIRATION: Breath sounds diminished in the bases. No rhonchi or crackles. No bronchial breathing. ABDOMEN: Soft, nontender . No guarding. no masses palpable. No ascites, No hepatosplenomegaly.Bowel sounds heard. EXTREMITIES: Right hip dressing clean dry and intact, minimal ecchymosis and swelling,no calf pain, positive DP pulse. PSYCHIATRY: Alert and oriented X3, mood and affect normal. NERVOUS SYSTEM: Cranial N 2-12 grossly normal. Moves all 4 limbs. Diffuse weakness No focal deficits. Strength and sensation grossly intact. Skin: Warm and dry, no rash Results CBC & Chem 7: 12/03/20 07:05 Assessment and Plan Assessment: Right hip osteoarthritis status post direct anterior right total hip arthroplasty Atelectasis Postoperative anemia, expected. Leukocytosis, low-grade fever 1, suspect reactive History of Left nephroureterectomy. COPD Hypertension Hypothyroid Hyperlipidemia Depression Plan: Continue on current medication regime ,monitoring and symptomatic treatment. Home meds have been reviewed and resumed accordingly. Aggressive pulmonary toileting , patient has not been using his incentive spirometer as ordered; incentive spirometer reinforced .Nebulized treatments scheduled and PRN,. PPI added for GI prophylaxis. PT. Repeat CBC, BMP outpatient, follow-up with PCP in one week .Pain management and anticoagulation as per primary.Thank you for the consult. The impression and plan of care has been dictated as directed. : I performed a history and examination of this patient, discussed the same with the dictator. I agree with the dictator's note ,documented as a scribe. Any a dditional findings or plans will be noted.
[2020-12-03] MEDS ORDERED: lisinopriL 20 MG TAB PO SCH (21:00)
[2020-12-04] MEDS ORDERED: PANTOPRAZOLE 40 MG TABLET PO SCH (09:00)
== END 2020-12-03 12:19 | disposition home health service (06) ==
LOC: OR 09:16 → 4SSUR 13:06 → OR 12-03 12:19
PROVIDERS: ATTEND Orthopaedic Surgery
DX: M16.11 Unilateral primary osteoarthritis, right hip (principal); J44.9 Chronic obstructive pulmonary disease, unspecified; K21.9 Gastro-esophageal reflux disease without esophagitis; E78.5 Hyperlipidemia, unspecified; E03.9 Hypothyroidism, unspecified; I10 Essential (primary) hypertension; Z79.82 Long term (current) use of aspirin; Z79.899 Other long term (current) drug therapy; Z85.51 Personal history of malignant neoplasm of bladder; Z79.890 Hormone replacement therapy; Z98.890 Other specified postprocedural states; Z90.5 Acquired absence of kidney; Z98.42 Cataract extraction status, left eye; Z98.41 Cataract extraction status, right eye
CPT/HCPCS: 27130; 94640 ×2; 97161; 85025; 88300; 73501; C1776; J1100; J0690 ×3; J2405; J1650; C9113; 86850; 86900; 86901

== ENCOUNTER 2021-05-29 09:58 | Day surgery (SDC) | payer MEDICARE, OTHER ==
[2021-05-28 10:30] VITALS: BMI 24.3
[~2021-05-29 09:58] MED LIST changes: -ACETAMINOPHEN TAB 500 MG TAB PO PRN; -DEXAMETHASONE SOD PHOSPHATE 4 MG/ML 1 ML VIAL IV ONE; -HYDROmorphone 0.5 MG/0.5 ML SYRINGE IVP PRN; -MELOXICAM 7.5 MG TAB PO PRN; -ONDANSETRON 4 MG/2 ML VIAL IVP ONE; -ROPIVACAINE/EPI/CLONIDINE/KET 50 ML SYRINGE MISCELLANE PRN; -TRANEXAMIC ACID 1,000 MG in SODIUM CHLORIDE 0.9% 100 ML IVPB PRN
[2021-05-29 10:33] VITALS: TEMP 97.2
[2021-05-29] MEDS ORDERED: PROPOFOL 10 MG/ML 20 ML VIAL IV ONE (10:46)
--- NOTE | 2021-05-29 10:56 | P.GSHP ---
History of Present Illness H&P Date: 05/29/21 Chief Complaint: Constipation This a 80-year-old male who presents today for colonoscopy. Patient's had issues with constipation Past Medical History Past Medical History: Cancer, COPD, Hyperlipidemia, Hypertension, Osteoarthritis (OA), Thyroid Disorder Additional Past Medical History / Comment(s): freq constipation hx. skin cancer, bladder cancer History of Any Multi-Drug Resistant Organisms: None Reported Past Surgical History: Bladder Surgery, Ear Surgery Additional Past Surgical History / Comment(s): skin cancer removed from back, lower eyelid surgery, left ear surgery for vertigo, thang cataracts, cystoscopy & TUR bladder tumor 2016 Past Anesthesia/Blood Transfusion Reactions: No Reported Reaction Smoking Status: Former smoker - Past Family History Mother Family Medical History: Cancer Additional Family Medical History / Comment(s): bladder Brother(s) Family Medical History: Cancer Additional Family Medical History / Comment(s): bladder Medications and Allergies Home Medications Medication Instructions Recorded Confirmed Type Albuterol Inhaler (Mhu) [Ventolin 1 - 2 puff INHALATION RT-Q6H PRN 09/24/15 05/29/21 History Hfa Inhaler (Mhu)] Aspirin 81 mg PO DAILY 09/24/15 05/29/21 History Citalopram Hydrobromide [CeleXA] 20 mg PO QAM 09/24/15 05/29/21 History Levothyroxine Sodium [Synthroid] 112 mcg PO QAM 09/24/15 05/29/21 History [place]-3 Fatty Acids/Fish Oil [Fish 1 cap PO DAILY 09/24/15 05/29/21 History Oil 1,000 mg Softgel] Simvastatin [Zocor] 80 mg PO HS 09/24/15 05/29/21 History lisinopriL [Zestril] 20 mg PO HS 09/24/15 05/29/21 History Albuterol Nebulized [Ventolin 2.5 mg INHALATION RT-DAILY PRN 02/23/17 05/29/21 History Nebulized] Metoprolol Tartrate [Lopressor] 25 mg PO BID 04/23/17 05/29/21 History Acetaminophen [Tylenol Arthritis] 1,300 mg PO DAILY PRN 11/29/20 05/29/21 History Fluticasone/Salmeterol [Advair 1 inhalation PO BID #1 each 12/03/20 05/29/21 Rx 250-50 Diskus] Sennosides-Docusate Sodium 2 each PO HS tab 12/03/20 05/29/21 Rx [Senokot-S] Prostate Support Supplement 2 tab PO DAILY 05/28/21 05/29/21 History Allergies Allergy/AdvReac Type Severity Reaction Status Date / Time amoxicillin AdvReac Nausea & Verified 05/29/21 10:16 Vomiting clarithromycin [From Biaxin] AdvReac Nausea & Verified 05/29/21 10:16 Vomiting clavulanic acid AdvReac Nausea & Verified 05/29/21 10:16 [From Augmentin] Vomiting Surgical - Exam Vital Signs Temp Pulse Resp BP Pulse Ox 97.2 F L 92 20 140/76 94 L 05/29/21 10:32 05/29/21 10:32 05/29/21 10:32 05/29/21 10:32 05/29/21 10:32 - General well developed, well nourished, no distress - Eyes PERRL - ENT normal pinna - Neck no masses - Respiratory normal expansion - Cardiovascular Rhythm: regular - Abdomen Abdomen: soft, non tender Assessment and Plan Assessment: Constipation. We'll perform colonoscopy.
--- NOTE | 2021-05-29 11:13 | P.OP ---
Date of Procedure: 05/29/21 Preoperative Diagnosis: Constipation Postoperative Diagnosis: Severe diverticulosis of sigmoid colon Procedure(s) Performed: Colonoscopy Anesthesia: MAC Surgeon: Rock Delgado Pathology: none sent Condition: stable Disposition: PACU Description of Procedure: The patient's placed on the endoscopy table in the lateral position. He received IV sedation. Digital rectal exam was performed which revealed no rebound. The gastroscope was then placed patient anus passed with colon. The scope, passed beyond the sigmoid colon secondary to significant diverticular changes sigmoid colon. This point scope withdrawn. Next a pediatric scope was positioned the patient's anus and passed throughout the entire colon. The ileocecal valve visualized. The cecum, ascending and transverse colon appeared normal. In the descending colon was a few scattered diverticula. Scope was brought back the sigmoid colon and there is extensive diverticular changes. The scope was brought back the rectum was normal scope withdrawn for patient.
[2021-05-29 11:35] VITALS: BP 124/74; PULSE 77; RESP 18
== END 2021-05-29 11:56 | disposition home or self-care (01) ==
LOC: ORWHC2ENDO 09:58
PROVIDERS: ATTEND Surgery
DX: K59.00 Constipation, unspecified (principal); K57.30 Diverticulosis of large intestine without perforation or abscess without bleeding; I10 Essential (primary) hypertension; J44.9 Chronic obstructive pulmonary disease, unspecified; E78.5 Hyperlipidemia, unspecified; M19.90 Unspecified osteoarthritis, unspecified site; E07.9 Disorder of thyroid, unspecified; Z85.828 Personal history of other malignant neoplasm of skin; Z85.51 Personal history of malignant neoplasm of bladder; Z79.899 Other long term (current) drug therapy; Z79.82 Long term (current) use of aspirin; Z79.890 Hormone replacement therapy; Z88.0 Allergy status to penicillin; Z88.8 Allergy status to other drugs, medicaments and biological substances; Z87.891 Personal history of nicotine dependence; Z98.890 Other specified postprocedural states; Z98.42 Cataract extraction status, left eye; Z98.41 Cataract extraction status, right eye; Z80.52 Family history of malignant neoplasm of bladder
CPT/HCPCS: 45378; J2704